=== PATIENT | female | born 1945 | race Caucasian/White ===

== ENCOUNTER → 2017-09-23 | Outpatient (CLI) | payer MEDICARE, OTHER ==
[2017-09-24 14:34] LABS: Stool Occult Bld Immuno 1 Negative (NEGATIVE); Stool Occult Bld Immuno 2 Negative (NEGATIVE); Stool Occult Bld Immuno 3 Negative (NEGATIVE)
== END | disposition home or self-care (01) ==
LOC: LAB 10:00 → LAB SHORT 10:00
PROVIDERS: Family Medicine
DX: Z12.11 Encounter for screening for malignant neoplasm of colon (principal)
CPT/HCPCS: G0328

== ENCOUNTER 2024-05-12 06:24 | Inpatient (IN) | payer MEDICARE, OTHER ==
[~2024-05-12] VITALS: Ht 167.6 cm; Wt 71.4 kg
[~2024-05-12 06:24] MED LIST: ALEN70 PO; AMLO10 PO; FISH OIL 1,0001 EA10 PO; FOSAMAX70 MG; LOSA25 PO; VITAMIN D325 MC3 PO
[2024-05-12 07:39] LABS: BASOPHILS ABSOLUTE AUTO 0.02 K/mm3 (0.00-0.23); BASOPHILS PERCENT AUTO 0 % (0-2); EOSINOPHILS ABSOLUTE AUTO 0.01 K/mm3 (0.00-0.68); EOSINOPHILS PERCENT AUTO 0 % (0-6); Hematocrit 26.9 % (33.0-51.0); Hemoglobin 8.6 g/dL (11.5-16.0); IMMATURE GRAN ABSOLUTE AUTO 0.06 K/mm3 (0.00-0.10); IMMATURE GRAN PERCENT AUTO 1 % (0-1); LYMPHOCYTES ABSOLUTE AUTO 1.11 K/mm3 (0.84-5.20); LYMPHOCYTES PERCENT AUTO 16 % (21-46); MONOCYTES ABSOLUTE AUTO 0.57 K/mm3 (0.16-1.47); MONOCYTES PERCENT AUTO 8 % (4-13); Mean Corpuscular HGB 28.5 pg (26.0-34.0); Mean Corpuscular Volume 89 fL (80-100); Mean Platelet Volume 9.3 fL (9.1-12.4); NEUTROPHILS ABSOLUTE AUTO 5.12 K/mm3 (1.96-9.15); NEUTROPHILS PERCENT AUTO 74 % (41-73); NRBC ABSOLUTE 0.04 K/mm3 (0.00-0.02); NRBC Auto 0.6 /100 WBC (0.0-0.2); Platelet Count 211 K/mm3 (150-400); RDW Coefficient Variation 16.5 % (11.7-14.2); RDW Standard Deviation 53.9 fL (35.1-46.3); Red Blood Cell Count 3.02 M/mm3 (3.80-5.20); White Blood Cell Count 6.89 K/mm3 (4.00-11.30)
[2024-05-12 07:48] LABS: Albumin, Blood 1.9 g/dL (3.4-5.0); Albumin/Globulin Ratio 0.6 (0.8-1.8); Bilirubin, Total 0.7 mg/dL (0.1-1.0); Bun/Creatinine Ratio 27.4 (12.0-20.0); Calcium, Blood 9.4 mg/dL (8.5-10.1); Creatinine, Blood 1.13 mg/dL (0.40-1.00); Globulin, Blood 3.3 g/dL (2.2-4.0); Potassium, Blood 3.1 mmol/L (3.5-5.5); Total Protein, Blood 5.2 g/dL (6.4-8.2)
[2024-05-12] MEDS ORDERED: Lactated Ringer's 1,000 ML IV ONE ×2 (08:00)
[2024-05-12] MEDS ORDERED: Metoclopramide HCl 5MG / ML 2ML Vial IV ONE (08:10)
[2024-05-12] MEDS ORDERED: Magnesium Sulf 2 GM/Water 50ML 50 ML IV ONE (08:10)
[2024-05-12 08:19] LABS: Magnesium, Blood 1.7 mg/dL (1.6-2.4); Phosphorus, Blood 1.6 mg/dL (2.5-4.9)
[2024-05-12 08:45] LABS: Source, Urine Clean Catch
[2024-05-12 09:18] LABS: Appearance, Urine Turbid (Clear); Blood, Urine 5+ (Neg); Color, Urine Brown (P-Yellow); Glucose Qualitative, Urine Neg (Neg); Ketones, Urine 1+ (Neg); Leukocyte Esterase, Urine 3+ (Neg); Nitrite, Urine Neg (Neg); Protein, Urine 3+ (Neg); Specific Gravity, Urine 1.015 (1.003-1.022); Urobilinogen, Urine 1+ (Normal)
[2024-05-12] MEDS ORDERED: Piperacillin/Tazobactam Sod 3.375 GM in NS 100 ML IV ONE (09:20)
[2024-05-12 09:21] LABS: Bilirubin, Urine 1+ (Neg)
[2024-05-12 09:27] LABS: Squamous Epithelial Cells Not Seen /hpf (Few); White Blood Cells, Urine 50-100 /hpf (0-5)
[2024-05-12 09:28] LABS: Amorphous Mod (0-Heavy); Bacteria Many /hpf
[2024-05-12 10:12] LABS: Adenovirus F 40/41 Not Detected (NOT DETECT); Astrovirus Not Detected (NOT DETECT); Campylobacter Sp Not Detected (NOT DETECT); Cryptosporidium Not Detected (NOT DETECT); Cyclospora Cayetanensis Not Detected (NOT DETECT); E. Coli O157 Not Detected (NOT DETECT); Entamoeba Histolytica Not Detected (NOT DETECT); Enteroaggregative E. coli-EAEC Not Detected (NOT DETECT); Enteropathogenic E. coli-EPEC Not Detected (NOT DETECT); Enterotoxigenic E. coli-ETEC Not Detected (NOT DETECT); Giardia Lamblia Not Detected (NOT DETECT); Norovirus GI/GII Not Detected (NOT DETECT); Plesiomonas Shigelloides Not Detected (NOT DETECT); Rotavirus A Not Detected (NOT DETECT); Salmonella Sp Not Detected (NOT DETECT); Sapovirus Not Detected (NOT DETECT); Shiga Toxin-prod E. coli-STEC Not Detected (NOT DETECT); Shigella/Enteroin E. coli-EIEC Not Detected (NOT DETECT); Vibrio Cholerae Not Detected (NOT DETECT); Vibrio Sp Not Detected (NOT DETECT); Yersinia Enterocolitica Not Detected (NOT DETECT)
[2024-05-12] MEDS ORDERED: Potassium Phosphate Dibasic 30 MM in Dextrose 5% 500 ML IV STA (10:58)
[2024-05-12] MEDS ORDERED: Lactated Ringer's 1,000 ML IV SCH (11:10)
[2024-05-12] MEDS ORDERED: Ondansetron HCl 2 MG / ML 2ML Vial IV PRN (11:10)
[2024-05-12] MEDS ORDERED: FLU VACC TS2024-25(6MOS UP)/PF 45 MCG/0.5 ML SYRINGE IM SCH (11:10)
[2024-05-12 13:20] VITALS: BP 92/65
--- NOTE | 2024-05-12 13:20 | NUR ---
PT ARRIVED TO THE ROOM FROM ER AT APPROXIMATELY 1320. PT ALERT AND ORIENTED X4 UPON ARRIVAL. PT EDUCATED TO USE THE CALL LIGHT. FAMILY AT THE BEDSIDE FOR SUPPORT. PT DENIES PAIN EXCEPT FOR INTERMITTENT LEG PAIN.
--- NOTE | 2024-05-12 13:20 | NUR ---
PEDAL AND TIBIAL PULSES PALPABLE BUT WEAK BILATERALLY.
[2024-05-12 15:36] VITALS: BP 97/65
[2024-05-12] MEDS ORDERED: Loperamide HCl 2 MG Cap PO PRN (15:45)
[2024-05-12] MEDS ORDERED: Heparin Sodium 5000 Units/ML 1ML MDV IV SCH (16:00)
[2024-05-12] MEDS ORDERED: OLME20 PO (16:02)
--- NOTE | 2024-05-12 16:53 | NUR ---
SPOKE WITH DR. ALANIS REGARDING EARLIER EPISODE OF SVT X3 SECONDS AND 10-12 PVC PER MINUTE, UNDERLYING RHYTHM IS SINUS AT 88, PT ASYMPTOMATIC. VSS, BP LOW 97/65 MAP 76 AT 1536, PT ASYMPTOMATIC. DR. ALANIS WAS NOTIFIED THAT DR. AVALOS FROM RADIOLOGY WAS CONSULTED AND STATED PT MAY NEED AN OUTPATIENT BIOPSY BUT HE WOULD ATTEMPT TO DO THIS NEXT WEEK IF PT REMAINS IN THE HOSPITAL. SHE WAS ALSO NOTIFIED OF STAGE TO PRESSURE INJURY TO COCCYX, OPTIFOAM DRESSING IN PLACE. DR. ALANIS PLACED AN ORDER FOR A BOLANOS CATH FOR 24 HOUR URINE COLLECTION AND TO PREVENT FURTHER SKIN BREAKDOWN.
[2024-05-12] MEDS ORDERED: Acetaminophen 325 MG TABLET PO PRN (16:55)
--- NOTE | 2024-05-12 17:06 | NUR ---
INITIAL PC VISIT: MET WITH PATIENT AND FAMILY IN ROOM. SPOUSE, SON AND DAUGHTER PRESENT. DISCUSSED CODE STATUS AND GOALS OF CARE WITH PT/FAMILY. PT EDUCATED ON DNR/FULL CODE MEASURES. PT REQUESTS AT THIS TIME SHE BE A DNR. SHE DOES NOT WANT TO HAVE CPR DONE IF NEEDED. SHE DOES NOT WANT TO BE ON A VENTILATOR IF NEEDED. GOALS OF CARE: PT WOULD LIKE TO CONTINUE WITH PLAN TO GET BIOPSY TO DETERMINE WHAT MASS IS. HOWEVER, SHE DOES STATE SHE WILL NOT WANT TO HAVE CHEMO OR RADIATION IF THAT IS THE ONLY TREATMENT OPTION. SHE WOULD GO THROUGH OTHER TREATMENT OPTIONS IF AVAILABLE. PT REPORTS HER PAIN LEVEL IS 4/10 AND STATES IT IS "DISCOMFORT" NOT PAIN. EDUCATED PT ON PAIN SCALE. PAIN IS IN PELVIC AREA AND LEGS. SHE REPORTS SHE HAS BEEN TAKING EXTRA STRENGTH EXCEDRIN AT HOME FOR HER PAIN. SHE DENIES N/V. UPDATED MAL GONZALEZ WITH PT COMPLAINTS/GOALS/WISHES TO CHANGE CODE STATUS. NOTIFIED DR. ALANIS PT WISHES TO BE DNR, AND PT GOALS AND REQUESTED MEDICATION FOR PAIN MANAGEMENT.
[2024-05-12] MEDS ORDERED: Ketorolac Tromethamine 15mg Vial IV PRN (17:10)
[2024-05-12] MEDS ORDERED: Amylase/Lipase/Protease DR Cap 12,000 PO SCH (17:30)
[2024-05-12] MEDS ORDERED: Piperacillin/Tazobactam Sod 2.25 GM in NS 50 ML IV SCH (18:00)
[2024-05-12] MEDS ORDERED: NS 250 ML IV PRN (18:10)
[2024-05-12] MEDS ORDERED: Heparin Sodium 5000 Units/ML 1ML MDV SC SCH (18:30)
--- NOTE | 2024-05-12 18:50 | NUR ---
SHIFT SUMMARY PT ARRIVED TO THE UNIT AT APPROXIMATELY 1320 FROM ER. PT AWAKE AND ORIENTED BUT DROWSY, DROWSINESS HAS INCREASED SINCE ADMIT, DR. ALANIS NOTIFIED. FAMILY HAS BEEN AT THE BEDSIDE FOR SUPPORT. PT IS ABLE TO ASSIST WITH REPOSITIONING BUT UNABLE TO DO IT INDEPENDENTLY. PT EDUCATED TO USE THE CALL LIGHT, CALL LIGHT PLACED WITHIN REACH. TELE IN PLACE, CONTINUOUS PULSE OX IN PLACE.
[2024-05-12 19:18] VITALS: BP 91/61
[2024-05-12] MEDS ORDERED: Lactobacil 2-S.Thermo-Bifido 1 1 Cap PO SCH (21:00)
[2024-05-13] VITALS (8 sets, daily range): BP systolic 96–124; BP diastolic 61–74
--- NOTE | 2024-05-13 01:13 | NUR ---
DR CHILEL THIS RN NOTIFIED HOSPITALIST THAT THERE WAS ONLY ABOUT 4 HR AND 45 MIN BETWEEN HEPARIN DOSES. NO CHANGES WITH PT STATUS. PER HOSPITALIST NO NEW ORDERS CONTINUE WITH AM LABS.
--- NOTE | 2024-05-13 04:46 | NUR ---
SHIFT SUMMARY NO ACUTE CHANGES THIS SHIFT. PT USES CALL LIGHT APPROPRIATELY. PT INCONTINENT OF STOOL. CATHETER IN PLACE, URINE CONTINUES TO BE BROWN IN COLOR. PT REPOSITIONED THROUGHOUT SHIFT. MEPILEX IN PLACE DUE TO COCCYX WOUND. PAIN HAS OCCASIONAL NON PRODUCTIVE COUGH ENCOURAGED PT TO COUGH AND DEEP BREATHE. PT'S PAIN HAS BEEN MANAGED THROUGHOUT SHIFT PER EMAR, REPOSITIONING, DISTRACTION. CALL LIGHT IN REACH, TELE AND CONTINOUS PULSE OXIMETRY IN PLACE.
[2024-05-13 05:13] LABS: BASOPHILS ABSOLUTE AUTO 0.01 K/mm3 (0.00-0.23); BASOPHILS PERCENT AUTO 0 % (0-2); EOSINOPHILS ABSOLUTE AUTO 0.02 K/mm3 (0.00-0.68); EOSINOPHILS PERCENT AUTO 0 % (0-6); Hematocrit 21.4 % (33.0-51.0); Hemoglobin 6.9 g/dL (11.5-16.0); IMMATURE GRAN ABSOLUTE AUTO 0.04 K/mm3 (0.00-0.10); IMMATURE GRAN PERCENT AUTO 1 % (0-1); LYMPHOCYTES ABSOLUTE AUTO 1.12 K/mm3 (0.84-5.20); LYMPHOCYTES PERCENT AUTO 19 % (21-46); MONOCYTES ABSOLUTE AUTO 0.48 K/mm3 (0.16-1.47); MONOCYTES PERCENT AUTO 8 % (4-13); Mean Corpuscular HGB 28.6 pg (26.0-34.0); Mean Corpuscular HGB Conc 32.2 g/dL (31.5-36.5); Mean Corpuscular Volume 89 fL (80-100); Mean Platelet Volume 9.6 fL (9.1-12.4); NEUTROPHILS ABSOLUTE AUTO 4.24 K/mm3 (1.96-9.15); NEUTROPHILS PERCENT AUTO 72 % (41-73); NRBC ABSOLUTE 0.04 K/mm3 (0.00-0.02); NRBC Auto 0.7 /100 WBC (0.0-0.2); Platelet Count 143 K/mm3 (150-400); RDW Coefficient Variation 16.6 % (11.7-14.2); RDW Standard Deviation 54.4 fL (35.1-46.3); Red Blood Cell Count 2.41 M/mm3 (3.80-5.20); White Blood Cell Count 5.91 K/mm3 (4.00-11.30)
[2024-05-13 05:37] LABS: Bun/Creatinine Ratio 25.2 (12.0-20.0); C-REACTIVE PROTEIN, EXT RANGE 9.5 mg/dL (0.000-0.300); Calcium, Blood 8.4 mg/dL (8.5-10.1); Creatinine, Blood 1.11 mg/dL (0.40-1.00); Magnesium, Blood 1.7 mg/dL (1.6-2.4); Potassium, Blood 2.9 mmol/L (3.5-5.5); Prealbumin, Blood 5.2 mg/dL (20.0-40.0)
[2024-05-13] MEDS ORDERED: NS 500 ML IV SCH (06:25)
--- NOTE | 2024-05-13 06:28 | NUR ---
DR RODAS PT'S HGB 6.9 THIS MORNING DOWN FROM 8.6 HOSPITALIST NOTIFIED. PER HOSPITLAIST 1 U PRBC ORDERED. NO ACUTE CHANGES NOTED, VSS.
--- NOTE | 2024-05-13 07:22 | NUR ---
AT APROX 0718 DR SANTOS NOTIFIED THAT PT IS UNABLE TO RECIEVE ORDERED UNIT OF BLOOD AT THIS TIME THERE IS NO SIGNED BLOOD CONSENT. STATES HE WILL COME AND DO CONSENT WITH PT.
[2024-05-13] MEDS ORDERED: Protein Supplement 30 ML UD PO SCH (09:00)
[2024-05-13] MEDS ORDERED: Potassium Chloride 40 MEQ in NS 250 ML IV ONE (09:25)
[2024-05-13] MEDS ORDERED: Amylase/Lipase/Protease DR Cap 12,000 PO PRN (09:35)
[2024-05-13] MEDS ORDERED: HYDROcodone 7.5MG-APAP 325MG /15ML UDC PO PRN (09:35)
[2024-05-13] MEDS ORDERED: FentaNYL Citrate 50 MCG/ML 2 ML Injection IV PRN (09:35)
--- NOTE | 2024-05-13 10:33 | NUR ---
LINE PLACEMENT: PT PIV LEAKING. PT NEEDS BLOOD TRANSFUSION AND IV K+. INFUSION NURSE IN TO PLACE POWERGLIDE.
[2024-05-13 17:14] LABS: Hematocrit 27.4 % (33.0-51.0); Hemoglobin 8.8 g/dL (11.5-16.0); Mean Corpuscular HGB 28.6 pg (26.0-34.0); Mean Corpuscular HGB Conc 32.1 g/dL (31.5-36.5); Mean Corpuscular Volume 89 fL (80-100); Mean Platelet Volume 9.5 fL (9.1-12.4); NRBC ABSOLUTE 0.06 K/mm3 (0.00-0.02); NRBC Auto 1.1 /100 WBC (0.0-0.2); Platelet Count 122 K/mm3 (150-400); RDW Coefficient Variation 16.3 % (11.7-14.2); RDW Standard Deviation 53.4 fL (35.1-46.3); Red Blood Cell Count 3.08 M/mm3 (3.80-5.20); White Blood Cell Count 5.25 K/mm3 (4.00-11.30)
--- NOTE | 2024-05-13 17:22 | NUR ---
PT HAS BEEN STABLE THIS SHIFT. PT HAVING DIFFUSE PAIN THROUGH ABDOMEN AND CHEST. PRN FENTANYL REPORTED EFFECTIVE FOR PAIN. PT CONT TO HAVE SOME DIARRHEA BUT HAS DECREASED. PT NEEDS NEW STOOL SAMPLE LAST SPECIMINE WAS TOO SMALL. PT TURNING IN BED TOLERATED, TOO WEAK TO GET OOB. PT HAS NO APPETITE, SIPS JUICE ONLY. PT HAD DIFFICULTY SWALLOWING SO PO MEDS WERE HELD THIS AM. BOLANOS IN PLACE, 24HR URINE COMPLETE AT 1800. LABS SENT PER ORDERS. NEW POWERGLIDE PLACEMENT. PT HAD 1 UNIT PRBC'S, TOLERATED WELL. PT HAD POTASSIUM REPLACEMENT. FAMILY AT BEDSIDE, ATTENTICE.
[2024-05-13 17:37] LABS: Bun/Creatinine Ratio 23.4 (12.0-20.0); Calcium, Blood 8.4 mg/dL (8.5-10.1); Creatinine, Blood 1.07 mg/dL (0.40-1.00); Potassium, Blood 3.7 mmol/L (3.5-5.5)
[2024-05-13] MEDS ORDERED: Lactated Ringer's 500 ML IV ONE (18:10)
[2024-05-13] MEDS ORDERED: D5W-1/2NS KCl 20mEq 1,000 ML IV SCH (19:00)
[2024-05-14 04:26] VITALS: BP 107/61
--- NOTE | 2024-05-14 05:28 | NUR ---
NOC SUMMARY- PT HAS RESTED COMFORTABLY FOR MOST OF SHIFT. PT REPSITIONED FREQUENTLY. PT BOLANOS IS DRAINING TO GRAVITY. PT ONLY HAD SMALL SMEAR BM'S, NOT ENOUGH FOR A SAMPLE. PT HAD A ELEVATED LATIC AND PROVIDER FAITH WAS CALLED. PROVIDER ORDERED TO CONTINUE IV FLUIDS. PT VSS AND SPO2 >90%. CALL LIGHT IN REACH.
[2024-05-14 06:18] LABS: BASOPHILS ABSOLUTE AUTO 0.01 K/mm3 (0.00-0.23); BASOPHILS PERCENT AUTO 0 % (0-2); EOSINOPHILS ABSOLUTE AUTO 0.03 K/mm3 (0.00-0.68); EOSINOPHILS PERCENT AUTO 1 % (0-6); Hematocrit 25.6 % (33.0-51.0); Hemoglobin 8.4 g/dL (11.5-16.0); IMMATURE GRAN ABSOLUTE AUTO 0.07 K/mm3 (0.00-0.10); IMMATURE GRAN PERCENT AUTO 1 % (0-1); LYMPHOCYTES ABSOLUTE AUTO 0.88 K/mm3 (0.84-5.20); LYMPHOCYTES PERCENT AUTO 16 % (21-46); MONOCYTES ABSOLUTE AUTO 0.37 K/mm3 (0.16-1.47); MONOCYTES PERCENT AUTO 7 % (4-13); Mean Corpuscular HGB 28.3 pg (26.0-34.0); Mean Corpuscular HGB Conc 32.8 g/dL (31.5-36.5); Mean Corpuscular Volume 86 fL (80-100); Mean Platelet Volume 9.5 fL (9.1-12.4); NEUTROPHILS ABSOLUTE AUTO 4.05 K/mm3 (1.96-9.15); NEUTROPHILS PERCENT AUTO 75 % (41-73); NRBC ABSOLUTE 0.04 K/mm3 (0.00-0.02); NRBC Auto 0.7 /100 WBC (0.0-0.2); Platelet Count 128 K/mm3 (150-400); RDW Coefficient Variation 16.9 % (11.7-14.2); RDW Standard Deviation 52.3 fL (35.1-46.3); Red Blood Cell Count 2.97 M/mm3 (3.80-5.20); White Blood Cell Count 5.41 K/mm3 (4.00-11.30)
[2024-05-14 06:33] LABS: Albumin, Blood 1.5 g/dL (3.4-5.0); Anion Gap 12 mmol/L (3-11); Blood Urea Nitrogen 26 mg/dL (8-24); Bun/Creatinine Ratio 24.8 (12.0-20.0); CO2, Blood 23 mmol/L (21-32); Calcium, Blood 8.3 mg/dL (8.5-10.1); Chloride, Blood 110 mmol/L (98-108); Creatinine, Blood 1.05 mg/dL (0.40-1.00); Glomerular Filtration Rate 55 (60-); Glucose, Blood 76 mg/dL (70-99); Phosphorus, Blood 2.2 mg/dL (2.5-4.9); Potassium, Blood 3.6 mmol/L (3.5-5.5); Sodium, Blood 141 mmol/L (136-145)
[2024-05-14 07:06] VITALS: BP 110/70
[2024-05-14] MEDS ORDERED: Potassium Phosphate Dibasic 30 MM in Dextrose 5% 500 ML IV STA (09:33)
[2024-05-14 10:58] VITALS: BP 115/74
[2024-05-14] MEDS ORDERED: Piperacillin/Tazobactam Sod 3.375 GM in NS 100 ML IV SCH (12:00)
[2024-05-14] MEDS ORDERED: HYDROCODONE-AC118 M5 PO (14:25)
[2024-05-14 14:27] VITALS: BP 107/75
--- NOTE | 2024-05-14 15:38 | NUR ---
RN OFFERED PATIENT PAIN MEDICATION PRIOR TO DISCHARGE HOME ON HOSPICE. PATIENT REFUSED
--- NOTE | 2024-05-14 15:39 | NUR ---
TELEMETRY REMOVED AND SENT TO U
--- NOTE | 2024-05-14 15:57 | NUR ---
PATIENT DISCHARGED AT 1555 VIA AMBULANCE TRANSPORT. THE PATIENT'S WAS HERE WHEN SHE DISCHARGED HOME. DC HOME ON HOSPICE.
[2024-05-16 10:34] LABS: ALBUMIN 1.97 g/dL (3.75-5.01); ALPHA 2 GLOBULIN 1.02 g/dL (0.48-1.05); BETA GLOBULIN 0.51 g/dL (0.48-1.10); GAMMA 0.78 g/dL (0.62-1.51); IMMUNOFIXATION IFE Done; IMMUNOGLOBULIN A 243 mg/dL (68-408); IMMUNOGLOBULIN G 771 mg/dL (768-1632); IMMUNOGLOBULIN M 88 mg/dL (35-263); KAPPA QNT FREE LIGHT CHAINS 129.87 mg/L (3.30-19.40); KAPPA/LAMBDA FLC RATIO 2.33 (0.26-1.65); LAMBDA QNT FREE LIGHT CHAINS 55.85 mg/L (5.71-26.30); TOTAL PROTEIN, SERUM 4.7 g/dL (6.3-8.2)
== END 2024-05-14 16:06 | disposition hospice, home (50) | DRG 385 ==
LOC: ER 06:24 → SURS 12:06
PROVIDERS: Family Medicine; Student in an Organized Health Care Education/Training Program; Surgery; ADMIT Internal Medicine
PROC: 30233N1 Transfusion of Nonautologous Red Blood Cells into Peripheral Vein, Percutaneous Approach (ICD-10-PCS; principal; 2024-05-13)
DX: K50.114 Crohn's disease of large intestine with abscess (principal); E43 Unspecified severe protein-calorie malnutrition; K63.1 Perforation of intestine (nontraumatic); E87.20 Acidosis, unspecified; N17.9 Acute kidney failure, unspecified; Z68.1 Body mass index [BMI] 19.9 or less, adult; E87.6 Hypokalemia; E83.39 Other disorders of phosphorus metabolism; Z66 Do not resuscitate; M89.59 Osteolysis, multiple sites; D63.8 Anemia in other chronic diseases classified elsewhere; M62.519 Muscle wasting and atrophy, not elsewhere classified, unspecified shoulder; L89.152 Pressure ulcer of sacral region, stage 2; I71.43 Infrarenal abdominal aortic aneurysm, without rupture; Z51.5 Encounter for palliative care; I10 Essential (primary) hypertension; Z98.890 Other specified postprocedural states; Z79.899 Other long term (current) drug therapy
CPT/HCPCS: 36415; 36430; 71250; 74177; 80048; 80053; 80069; 81001; 82330; 82784; 83521; 83605; 83690; 83735; 84100; 84134; 84145; 84155; 84165; 85025; 85027; 85060; 86140; 86334; 86850; 86900; 86901; 86923; 87086; 87507; 93005; 93010; 96365; 96375; 99285-25; A9270; J1644; J1885; J2543; J2765; J3010; J3475; J3480; J7050; J7060; J7120; P9016; P9612; Q9967